=== PATIENT | female | born 1945 | race Caucasian/White ===

== ENCOUNTER 2023-04-06 11:56 | Outpatient (RCR) | payer MEDICARE, BC, SELFPAY | END 2023-04-06 23:59 | disposition home or self-care (01) | LOC: RPT 11:56 | PROVIDERS: ATTENDING PHYSICIAN Obstetrics & Gynecology; FAMILY PHYSICIAN Family Medicine | DX: N99.3 Prolapse of vaginal vault after hysterectomy (principal); N39.0 Urinary tract infection, site not specified; M62.89 Other specified disorders of muscle; Z73.6 Limitation of activities due to disability | CPT/HCPCS: 97110; 97162; 97530 ==

== ENCOUNTER 2023-05-07 09:03 | Outpatient (RCR) | payer MEDICARE, BC, SELFPAY | END 2023-05-07 23:59 | disposition home or self-care (01) | LOC: RPT 09:03 | PROVIDERS: ATTENDING PHYSICIAN Obstetrics & Gynecology; FAMILY PHYSICIAN Family Medicine | DX: N99.3 Prolapse of vaginal vault after hysterectomy (principal); N39.0 Urinary tract infection, site not specified; M62.89 Other specified disorders of muscle; Z73.6 Limitation of activities due to disability | CPT/HCPCS: 97110; 97112; 97140; 97530 ==

== ENCOUNTER 2023-05-21 09:06 | Outpatient (RCR) | payer MEDICARE, BC, SELFPAY | END 2023-05-21 23:59 | disposition home or self-care (01) | LOC: RPT 09:06 | PROVIDERS: ATTENDING PHYSICIAN Obstetrics & Gynecology; FAMILY PHYSICIAN Family Medicine | DX: N81.11 Cystocele, midline (principal); N99.3 Prolapse of vaginal vault after hysterectomy; N39.0 Urinary tract infection, site not specified; M62.89 Other specified disorders of muscle; Z73.6 Limitation of activities due to disability | CPT/HCPCS: 97014; 97110; 97112; 97140; 97530 ==